=== PATIENT | female | born 1975 | race African-American/Black ===

== ENCOUNTER 2017-05-24 22:56 | Emergency (ER) | payer OTHER, MEDICAID, SELFPAY ==
[2017-05-24 22:57] VITALS: BMI 22.1
[2017-05-24 22:59] VITALS: BP 130/81; PULSE 106; RESP 20; O2SAT 97; BMI 22.1
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
[2017-05-24 23:14] LABS: Basophils % 0.4 % (0.1-2.0); Eosinophils # 0.1 K/mm3 (0.0-0.4); Eosinophils % 2.5 % (0.1-12.0); Hematocrit 32.2 % (37.0-47.0); Lymphocytes # 2.1 K/mm3 (0.7-4.5); Lymphocytes % 40.6 K/mm3 (10-50); Mean Corpuscular Hemoglobin 18.6 pg (27.0-31.2); Mean Corpuscular Volume 66.5 fl (81-99); Mean Platelet Volume 7.2 fl (7.4-10.4); Monocytes # 0.3 K/mm3 (0.1-1.0); Monocytes % 5.1 % (1.7-9.3); Neutrophils # 2.6 K/mm3 (1.8-7.8); Neutrophils % 51.4 % (37.0-80.0); Platelet Count 260 K/mm3 (142-424); Red Blood Count 4.84 M/mm3 (4.20-5.40); Red Cell Distribution Width 18.4 % (11.5-17.5); White Blood Count 5.1 K/mm3 (4.8-10.8)
[2017-05-24 23:21] LABS: Alanine Aminotransferase 27 U/L (12-78); Albumin Level 3.7 gm/dL (3.4-5.0); Albumin/Globulin Ratio 0.9 (1.1-1.8); Alkaline Phosphatase 80 U/L (46-116); Anion Gap 9.6 mEq/L (5-15); Aspartate Amino Transferase 33 U/L (15-37); Bilirubin,Total 0.3 mg/dL (0.2-1.0); Blood Urea Nitrogen 19 mg/dL (7-18); Calcium 8.5 mg/dL (8.5-10.1); Carbon Dioxide 27 mmol/L (21.0-32.0); Chloride 108 mmol/L (98-107); Creatinine Clearance Estimated 105 mL/min (0-300); Estimated Glomerular Filt Rate 111 ml/min (>60); GFR (African American) 135 ML/MIN (>60); Globulin 4.1 gm/dl (1.3-3.2); Glucose 108 mg/dL (74-106); Potassium 3.6 mmoL/L (3.5-5.1); Sodium 141 mmol/L (136-145); Total Protein,Serum 7.8 gm/dL (6.4-8.2)
[2017-05-24 23:23] LABS: HCG Qualitative, Serum Negative (Negative)
[2017-05-24 23:57] VITALS: BP 80/50; PULSE 94; RESP 14; O2SAT 82; BMI 31.6
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
[2017-05-25 00:32] VITALS: BP 111/76; PULSE 80; RESP 16; O2SAT 100
--- NOTE | 2017-05-25 00:37 | PC.NURSE ---
ATTEMPTED TO GET OUT OF BED, C/O SEVERE HEAD PAIN, NAUSEA, AN DIZZINESS
== END 2017-05-25 00:49 | disposition home or self-care (01) ==
PROVIDERS: Emergency Provider Emergency Medicine; PCP Internal Medicine Adolescent Medicine
DX: S00.93XA Contusion of unspecified part of head, initial encounter (principal); S30.1XXA Contusion of abdominal wall, initial encounter; S10.83XA Contusion of other specified part of neck, initial encounter; V89.2XXA Person injured in unspecified motor-vehicle accident, traffic, initial encounter
CPT/HCPCS: 70450; 71045; 72125; 72170; 74177; 80053; 84703; 85025; 99282; Q9967

== ENCOUNTER → 2019-09-26 16:36 | Outpatient (CLI) | payer BC, SELFPAY ==
--- NOTE | 2019-09-26 16:47 | XR_ITS ---
PROCEDURE: XR SHOULDER RT MIN 2V CLINICAL INDICATION: PAIN COMPARISON: No exams were available for comparison FINDINGS: No fracture or dislocation. No lytic or blastic change. There is normal mineralization. The joint spaces are well-preserved. No significant degenerative/arthritic changes. No erosive changes evident. Other findings:None. IMPRESSION: Negative right shoulder Dictated by: Arun Marin MD 09/26/2019 17:03 Electronically signed by Arun Marin MD in [place] 09/26/2019 17:03
[2019-09-26 17:03] LABS: MANUAL DIFFERENTIAL MANUAL DIFFERENTIAL (MANUAL DIFF)
[2019-09-26 17:33] LABS: Basophils % 0.3 % (0.1-2.0); Eosinophils # 0.2 K/mm3 (0.0-0.4); Eosinophils % 3.3 % (0.1-12.0); Hematocrit 30.7 % (37.0-47.0); Hemoglobin 8.8 g/dL (12.2-16.2); Lymphocytes # 1.8 K/mm3 (0.7-4.5); Lymphocytes % 30.4 % (10-50); Mean Corpuscular HGB Conc 28.6 g/dL (31.8-35.4); Mean Corpuscular Hemoglobin 18.3 pg (27.0-31.2); Mean Platelet Volume 6.7 fl (7.4-10.4); Monocytes # 0.4 K/mm3 (0.1-1.0); Monocytes % 5.9 % (1.7-9.3); Neutrophils # 3.6 K/mm3 (1.8-7.8); Neutrophils % 60.1 % (37.0-80.0); Platelet Count 201 K/mm3 (142-424); Red Cell Distribution Width 21.5 % (11.5-17.5); Reticulocyte % (Auto) 1.7 % (0.9-3.2); White Blood Count 5.9 K/mm3 (4.8-10.8)
[2019-09-26 17:49] LABS: Chloride 106 mmol/L (98-107); Eosinophils % 3 % (0-3); Lymphocytes % 29 % (10-50); Monocytes % 2 % (2-9); Neutrophils % 65 % (42-76); Potassium 3.4 mmoL/L (3.5-5.1); Sodium 137 mmol/L (136-145); Total Cells Counted 100
[2019-09-26 17:50] LABS: Anisocytosis 2+; Hypochromasia 3+; Microcytosis 3+; Platelet Estimate Normal
[2019-09-26 17:52] LABS: Alanine Aminotransferase 13 U/L (12-78); Albumin Level 4.5 g/dl (3.5-5.0); Albumin/Globulin Ratio 1.3 (1.1-1.8); Alkaline Phosphatase 90 U/L (38-126); Anion Gap 14.4 mEq/L (5-15); Aspartate Amino Transferase 38 U/L (14-36); Bilirubin,Total 0.5 mg/dl (0.2-1.3); Blood Urea Nitrogen 20 mg/dl (7-17); Carbon Dioxide 20 mmol/L (22.0-30.0); Estimated Glomerular Filt Rate 135 ml/min (>60); GFR (African American) 164 ML/MIN (>60); Globulin 3.4 g/dL (1.3-3.2); Total Protein,Serum 7.9 g/dl (6.3-8.2)
[2019-09-26 17:53] LABS: Calcium 9.1 mg/dl (8.4-10.2); Glucose 102 mg/dl (74-100)
[2019-09-26 18:28] LABS: Ferritin 8.21 ng/ml (6.24-137)
[2019-09-28 10:40] LABS: Vitamin B12 550 pg/mL (232-1245)
[2019-09-28 16:55] LABS: Peripheral Smear Review Scanned Result
[2019-10-05 17:11] LABS: Methylmalonic Acid 107 nmol/L (0-378)
== END ==
PROVIDERS: PCP Internal Medicine Adolescent Medicine; Visit Provider Internal Medicine Adolescent Medicine
DX: D50.9 Iron deficiency anemia, unspecified (principal); M25.511 Pain in right shoulder; Z83.2 Family history of diseases of the blood and blood-forming organs and certain disorders involving the immune mechanism
CPT/HCPCS: 36415; 73030; 80053; 82131; 82607; 82728; 85007; 85014; 85018; 85044; 85048; 85049

== ENCOUNTER → 2019-10-24 09:35 | Outpatient (CLI) | payer BC, SELFPAY | PROVIDERS: Visit Provider Internal Medicine Gastroenterology | DX: Z01.818 Encounter for other preprocedural examination (principal) ==

== ENCOUNTER 2019-12-24 15:00 | Outpatient (RCR) | payer BC, SELFPAY ==
--- NOTE | 2019-10-15 14:59 | HMH.PTOPEV ---
PT Outpatient Evaluation Rehab PT Outpatient Evaluation Start: 10/15/19 13:51 Freq: Status: Active Protocol: Document 10/15/19 14:39 PHOCARLOS (Rec: 10/15/19 14:58 PHORNE [id number]) Electronically Signed By Jermaine Rowley, PT 10/15/19 14:39 Outpatient Therapy Subjective History Subjective History Pt is 44 yoaaf who presents with c/o R shld pain x ~ 2 mos with insidious onset of symptoms. She reports pain is now failry constant, but worse with activity. She reports aching pain with intermittent burning slightly inferior to the R GH jt. 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 She has hx of anemia, but otherwise none significant. Chief Complaint Pain Symptom Type Ache,Sharp,Burning Symptoms Relieved By Rest/Positioning Symptoms Aggravated By Physical Activity,Lifting Prior Functional Limitations None Current Functional Limitations Reaching,Lifting Symptom Description Constant but Variable Level of pain today (0-10) 4 Pain scale - at its worst (0-10) 9 Shoulder/Elbow Eval Shoulder Objective Measurements Palpation Tenderness tenderness shoulder exam standard right tenderness over the bicipital tendon right shoulder exam standard tenderness over the SA bursa shoulder right exam standard Shoulder ROM Right Shoulder Abduction Active Range of 0-125 Motion (degrees) Shoulder Abduction Passive Range of 0-65 Motion (degrees) Shoulder Flexion Active Range of Motion 0-160 (degrees) Query Text: Shoulder Flexion Passive Range of Motion 0-180 (degrees) pain with active ROM shoulder exam right standard pain with passive ROM shoulder exam right standard Shoulder MMT Anterior Deltoid Strength Grade 4- Good- Shoulder Abduction Strength Grade 4- Good- Shoulder Flexion Strength Grade 4- Good- Shoulder External Rotation Strength 4 Good Grade Shoulder Internal Rotation Strength 4- Good- Grade Shoulder Special Tests impingement sign present shoulder exam right standard Shoulder Cross-Over Impingement Test Negative Left,Positive Right Acromioclavicular Joint Compression Test Negative Left
--- NOTE | 2019-11-12 16:22 | HMH.RHREAS ---
Rehab Reassessment Rehab OP Re-assessment Start: 11/12/19 16:19 Freq: Status: Active Protocol: Document 11/12/19 16:20 REYMUNDO (Rec: 11/12/19 16:22 REYMUNDO [id number]) Electronically Signed By Jermaine Rowley, PT 11/12/19 16:20 Rehab Re-assessment Subjective Subjective Pt reports she is better overall, but continues to have pain in the R shld and feeling of a catch with R shld abduction. Objective Objective Notes AROM R SHLD: flex= 0-150 pain free, ABD= 0-135 pain free. Assessment Progress Assessment Progressing as Expected Assessment Notes Pt shows improving motion, but continues to have increased pain after ~ 140-150 deg of R shld A/PROM. Patient goals met none Goals Not Met ST,2,3,4,5 LT,2,3,4, 5 Revised Goals none Plan Plan Continue per initial POC. Frequency of Therapy 2 x/wk Duration of therapy 8 wks Time and Billing Re-Eval Time 15 Re-Eval Billing Units 1 PHYSICIAN CERTIFICATION: I certify the specified therapy services for Travis Mejia are required, authorized, and reviewed every 30 days.
--- NOTE | 2019-12-11 13:37 | HMH.RHREAS ---
Rehab Reassessment Rehab OP Re-assessment Start: 11/12/19 16:19 Freq: Status: Active Protocol: Document 12/11/19 13:31 REYMUNDO (Rec: 12/11/19 13:37 PHORNE [id number]) Electronically Signed By Jermaine Rowley, PT 12/11/19 13:31 Rehab Re-assessment Subjective Subjective Pt reports she has continued pain in the R shld and into her neck with frequent headaches. She also reports her left shld has begun to hurt due to increased use at work. Objective Objective Notes MMT B SHLD: grossly 5/5 throughout in available ROM. L shld AROM: WNL throughout. R shld AROM: flex= 0-150 with pain, ABD= 0-150 with pain. R UT/lev scap and LHB tendon anteriorly 3/4 palpation tenderness. Assessment Progress Assessment Slower Than Expected Assessment Notes Pt has improved dtrength throughout her R shld girdle, but continues to have increased pain and limited pain free ROM. She reports feeling of a catch in the R shld during AROM at ~ 120 deg. Patient goals met none Goals Not Met ST,2,3,4,5 LT,2,3,4, 5 Revised Goals none Plan Plan Continue per initial POC. Dry needling for muscle trigger pt relief. Frequency of Therapy 2 x/wk Duration of therapy 8 wks Time and Billing Re-Eval Time 15 Re-Eval Billing Units 1 PHYSICIAN CERTIFICATION: I certify the specified therapy services for Travis Mejia are required, authorized, and reviewed every 30 days.
== END 2019-12-24 15:48 | disposition home or self-care (01) ==
LOC: PT 15:00
PROVIDERS: PCP Internal Medicine Adolescent Medicine; Visit Provider Internal Medicine Adolescent Medicine
DX: M25.511 Pain in right shoulder (principal)
CPT/HCPCS: 20560; 97010; 97014; 97016; 97033; 97035; 97110; 97140; 97163; 97164; G0283

== ENCOUNTER → 2020-01-07 12:42 | Outpatient (CLI) | payer BC, SELFPAY ==
--- NOTE | 2020-01-07 12:45 | XR_ITS ---
PROCEDURE: XR SHOULDER RT MIN 2V CLINICAL INDICATION: right shoulder pain COMPARISON: CR XR SHOULDER RT MIN 2V from 09/26/2019 FINDINGS: No fracture or dislocation. No lytic or blastic change. There is normal mineralization. The joint spaces are well-preserved. No significant degenerative/arthritic changes. No erosive changes evident. Other findings:None. IMPRESSION: No acute findings. Dictated by: Arun Marin MD 01/07/2020 16:05 Arun Marin MD in [place] 01/07/2020 16:05
== END ==
PROVIDERS: PCP Internal Medicine Adolescent Medicine; Visit Provider Orthopaedic Surgery
DX: M25.511 Pain in right shoulder (principal)
CPT/HCPCS: 73030

== ENCOUNTER → 2020-01-13 14:41 | Outpatient (CLI) | payer BC, SELFPAY ==
--- NOTE | 2020-01-13 14:47 | MR_ITS ---
PROCEDURE: MR SHOULDER RT WO CON CLINICAL INDICATION: right shoulder pain PT C/O RT SHOULDER PAIN AND STATES SHE IS UNABLE TO LIFT ARM. PT HAS HAD PT AND HAS WEAKNESS IN THE LEFT ARM. PT STATES SHE FEELS A CONSTANT BURNING SENSATION IN RT ARM. COMPARISON: CR XR SHOULDER RT MIN 2V from 01/07/2020 TECHNIQUE: Routine multiplanar multi echo sequences are performed without gadolinium enhancement. FINDINGS: No evidence of rotator cuff tear. The supraspinatus, infraspinatus, and teres minor tendons are unremarkable. There is slight increased T2 signal with some thickening of the distal aspect of the subscapularis tendon suggesting tendinopathy/tendinosis. No evidence of labral tear. Bicipital tendon is in place. Minimal amount of fluid is present in the subcoracoid region. The AC joint has an unremarkable appearance. No fracture or dislocation. IMPRESSION: 1. No evidence of rotator cuff tear.. 2. Possible mild tendinopathy/tendinosis of the subscapularis tendon with minimal amount of fluid in the sub coracoid region which may be secondary to mild bursitis Dictated by: Arun Marin MD 01/15/2020 13:28 Arun Marin MD in [place] 01/15/2020 13:28
== END ==
PROVIDERS: PCP Internal Medicine Adolescent Medicine; Visit Provider Orthopaedic Surgery
DX: M25.511 Pain in right shoulder (principal)
CPT/HCPCS: 73221

== ENCOUNTER 2024-09-16 11:52 | Outpatient (CLI) | payer OTHER, BC, SELFPAY ==
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
== END 2024-09-16 23:59 | disposition home or self-care (01) ==
PROVIDERS: PCP Internal Medicine Adolescent Medicine; Visit Provider Internal Medicine Adolescent Medicine
DX: S29.019A Strain of muscle and tendon of unspecified wall of thorax, initial encounter (principal)
CPT/HCPCS: 72084

== ENCOUNTER 2024-11-20 16:40 | Outpatient (CLI) | payer OTHER, BC, SELFPAY ==
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
== END 2024-11-20 23:59 | disposition home or self-care (01) ==
LOC: RAD 17:01
PROVIDERS: PCP Internal Medicine Adolescent Medicine; Visit Provider Internal Medicine Adolescent Medicine
DX: M51.360 Other intervertebral disc degeneration, lumbar region with discogenic back pain only (principal); M47.816 Spondylosis without myelopathy or radiculopathy, lumbar region; D18.09 Hemangioma of other sites
CPT/HCPCS: 72148